=== PATIENT | female | born 1955 | race Caucasian/White ===

== ENCOUNTER → 2016-08-13 | Outpatient (CLI) | payer OTHER, BC ==
--- NOTE | 2016-08-13 09:00 | REPMRS ---
Patient History The patient states she had a clinical breast exam in 08/11 Patient is postmenopausal. No known family history of cancer. Taking unspecified hormones for 25 years. Digital Woman Screen Mammo: August 13, 2016 - Exam #: [id number] Bilateral CC and MLO view(s) were taken. Technologist: Krystle Modi, Technologist Prior study comparison: August 08, 2015, digital woman screen mammo performed at [facility]. July 19, 2014, digital woman screen mammo performed at [facility]. June 29, 2013, digital woman screen mammo performed at [facility]. FINDINGS: There are scattered fibroglandular densities. There has been no change in the appearance of the mammogram from the prior studies. There is a mild amount of scattered fibroglandular density which is fairly symmetric. There is no interval development of dominant mass, architectural distortion, or clustered microcalcification suggestive of malignancy. ASSESSMENT: BI-RADS/ACR category 1 mammogram. Negative. Recommendation Routine screening mammogram in 1 year (for women over age 40). This mammogram was interpreted with the aid of an FDA-approved computer-aided dectection system. Electronically Signed By: Pk Mancilla MD 08/13/16 [id number]
== END ==
LOC: M WHC 08:00
PROVIDERS: ATTEND Nurse Practitioner Family
DX: Z12.31 Encounter for screening mammogram for malignant neoplasm of breast (principal); Z78.0 Asymptomatic menopausal state

== ENCOUNTER → 2016-10-15 | Outpatient (REF) | payer OTHER ==
[~2016-10-15] MED LIST: ADVAIR; ALBU17IN; BYDU1INJ; DICL13PA; ESTR1CRE; JARD1TAB3; LOSA50TA20; METF-415 PO; ONDA8TAB8; PANT40TA2; PERC5TAB12 PO; SIMV20TA2; SPIR25TA2
== END ==
LOC: M LAB REF 13:20
PROVIDERS: ATTEND Family Medicine
DX: Z01.89 Encounter for other specified special examinations (principal)

== ENCOUNTER 2016-12-28 09:56 | Emergency (ER) | payer OTHER, BC ==
[~2016-12-28] VITALS: Ht 165.1 cm; Wt 68.2 kg
[2016-12-28] MEDS ORDERED: SIMV20TA2 (10:07)
[2016-12-28] MEDS ORDERED: ADVAIR (10:07)
[2016-12-28] MEDS ORDERED: METF-415 PO (10:07)
[2016-12-28] MEDS ORDERED: BYDU1INJ (10:07)
[2016-12-28] MEDS ORDERED: SPIR25TA2 (10:07)
[2016-12-28] MEDS ORDERED: ESTR1CRE (10:07)
[2016-12-28] MEDS ORDERED: LOSA50TA20 (10:07)
[2016-12-28] MEDS ORDERED: JARD1TAB3 (10:07)
[2016-12-28] MEDS ORDERED: ALBU17IN (10:07)
[2016-12-28] MEDS ORDERED: DICL13PA (10:07)
[2016-12-28] MEDS ORDERED: ONDA8TAB8 (10:07)
[2016-12-28] MEDS ORDERED: PANT40TA2 (10:07)
[2016-12-28] MEDS ORDERED: KETOROLAC 60 MG/2 ML VIAL (J1885) IM ONE (12:30)
[2016-12-28] MEDS ORDERED: PERC5TAB12 PO (12:31)
[2016-12-28 12:43] VITALS: BP 139/69
== END 2016-12-28 13:14 | disposition home or self-care (01) ==
LOC: M ED 09:56
DX: M25.562 Pain in left knee (principal); E11.9 Type 2 diabetes mellitus without complications; J45.909 Unspecified asthma, uncomplicated; I10 Essential (primary) hypertension; Z79.84 Long term (current) use of oral hypoglycemic drugs; Z79.899 Other long term (current) drug therapy; Z88.5 Allergy status to narcotic agent; Z88.8 Allergy status to other drugs, medicaments and biological substances; Z88.2 Allergy status to sulfonamides; Z88.1 Allergy status to other antibiotic agents
CPT/HCPCS: 96372; 99283; J1885

== ENCOUNTER → 2017-04-29 | Outpatient (REF) | payer OTHER, BC | LOC: M LAB REF 12:11 | DX: R30.0 Dysuria (principal) ==

== ENCOUNTER → 2017-08-17 | Outpatient (CLI) | payer OTHER, BC ==
[2017-08-17 16:52] LABS: BASO # 0.1 10^3/uL (0.0-0.2); BASO % 0.7 % (0.0-1.0); EOS # 0.1 10^3/uL (0.0-0.50); EOS % 1.3 % (0.0-3.0); HEMATOCRIT 47.1 % (36.0-47.0); HEMOGLOBIN 15.5 g/dl (12.0-15.5); IMMATURE GRANULOCYTE % 0.3 % (0-3.0); LYMPH # 3.1 10^3/uL (1.5-4.5); LYMPH % 31.2 % (24.0-44.0); MEAN CORPUSCULAR HEMOGLOBIN 29.6 pg (27.0-33.0); MEAN CORPUSCULAR HGB CONC 32.9 g/dl (32.0-36.5); MEAN CORPUSCULAR VOLUME 90.1 fl (80.0-96.0); MONO # 0.7 10^3/uL (0.0-0.8); MONO % 7.2 % (0.0-5.0); NEUTROPHILS # 5.9 10^3/uL (1.8-7.7); NEUTROPHILS % 59.3 % (36.0-66.0); PLATELET COUNT, AUTOMATED 371 10^3/uL (150-450); RED BLOOD COUNT 5.23 10^6/uL (4.00-5.40); RED CELL DISTRIBUTION WIDTH 13.3 % (11.5-14.5)
[2017-08-17 18:29] LABS: ALBUMIN 4.6 GM/DL (3.2-5.2); ALBUMIN/GLOBULIN RATIO 1.44 (1.00-1.93); ALKALINE PHOSPHATASE 82 U/L (45-117); ALT/SGPT 27 U/L (12-78); AMYLASE 139 U/L (25-115); ANION GAP 11 MEQ/L (8-16); AST/SGOT 12 U/L (7-37); BILIRUBIN,TOTAL 0.8 MG/DL (0.2-1.0); BLOOD UREA NITROGEN 21 MG/DL (7-18); CALCIUM LEVEL 9.8 MG/DL (8.8-10.2); CARBON DIOXIDE LEVEL 24 MEQ/L (21-32); CHLORIDE LEVEL 103 MEQ/L (98-107); CREATININE FOR GFR 0.77 MG/DL (0.55-1.30); GLOMERULAR FILTRATION RATE > 60.0 (>45); GLUCOSE, FASTING 136 MG/DL (70-100); LIPASE 124 U/L (73-393); POTASSIUM SERUM 4.5 MEQ/L (3.5-5.1); SODIUM LEVEL 138 MEQ/L (136-145); TOTAL PROTEIN 7.8 GM/DL (6.4-8.2)
== END ==
LOC: M WUC 12:08
DX: R11.2 Nausea with vomiting, unspecified (principal)

== ENCOUNTER → 2017-08-19 | Outpatient (CLI) | payer OTHER | LOC: M WHC 07:55 | DX: Z12.31 Encounter for screening mammogram for malignant neoplasm of breast (principal) ==

== ENCOUNTER → 2017-09-07 | Outpatient (CLI) | payer OTHER | LOC: M LRY 11:59 | DX: S69.92XA Unspecified injury of left wrist, hand and finger(s), initial encounter (principal); X58.XXXA Exposure to other specified factors, initial encounter; Y92.9 Unspecified place or not applicable | CPT/HCPCS: 73140 ==

== ENCOUNTER → 2018-07-20 | Outpatient (CLI) | payer OTHER ==
[~2018-07-20] MED LIST changes: -LOSA50TA20; +LOSA50TA88; -PANT40TA2; +PANT40TA3; +SPIR-10; -SPIR25TA2
--- NOTE | 2018-07-20 16:54 | REP ---
Left fingers four views History: Injury There is no acute fracture or dislocation. The joint spaces are normal in appearance. Calcified densities are present medial to the and posterior to the the distal interphalangeal joint of the second digit. This represents ligamentous or tendon calcification. Impression: There is no acute fracture or dislocation. Electronically Signed by Vlad Hudson MD 07/20/2018 04:46 P
== END ==
LOC: M LRY 16:09
PROVIDERS: ATTEND Physician Assistant
DX: S69.92XA Unspecified injury of left wrist, hand and finger(s), initial encounter (principal); X58.XXXA Exposure to other specified factors, initial encounter; Y92.89 Other specified places as the place of occurrence of the external cause

== ENCOUNTER → 2018-08-25 | Outpatient (CLI) | payer OTHER ==
--- NOTE | 2018-08-25 10:06 | REPMRS ---
Patient History The patient states she had a clinical breast exam in 07/2018. Patient is postmenopausal. No known family history of cancer. Taking unspecified hormones for 27 years. 3D TOMOSYNTHESIS WAS PERFORMED. Digital Woman Screen Mammo: August 25, 2018 - Exam #: [id number] Bilateral CC and MLO view(s) were taken. Technologist: Alexandra Samuels Technologist Prior study comparison: August 19, 2017, digital woman screen mammo performed at [facility]. August 13, 2016, digital woman screen mammo performed at [facility]. FINDINGS: The breast tissue is heterogeneously dense. This may lower the sensitivity of mammography. There has been no change in the appearance of the mammogram from the prior studies. There is a moderate amount of residual fibroglandular tissue which is fairly symmetric. There is no interval development of dominant mass, areas of architectural distortion, or clustered microcalcification typical of malignancy. Assessment: BI-RADS/ACR category 1 mammogram. Negative Mammogram. Recommendation Routine screening mammogram in 1 year (for women over age 40). This mammogram was interpreted with the aid of an FDA-approved computer-aided dectection system. Electronically Signed By: Jorge Alberto Esparza MD 08/25/18 [id number]
== END ==
LOC: M WHC 08:00
PROVIDERS: ATTEND Nurse Practitioner Family
DX: Z12.31 Encounter for screening mammogram for malignant neoplasm of breast (principal); Z78.0 Asymptomatic menopausal state; Z92.29 Personal history of other drug therapy

== ENCOUNTER → 2019-03-25 | Outpatient (REF) | payer OTHER ==
[~2019-03-25] MED LIST changes: -SIMV20TA2; +SIMV20TA22
== END ==
LOC: M LAB REF 13:37
PROVIDERS: ATTEND Physician Assistant
DX: R39.12 Poor urinary stream (principal)

== ENCOUNTER → 2019-06-04 | Outpatient (REF) | payer BC ==
[2019-06-04 16:29] LABS: CREATININE, URINE 62.9 MG/DL; MAU/CREAT RATIO 31.7 MCG/MG (0.0-30.0)
== END ==
LOC: M LAB REF 15:12
PROVIDERS: ATTEND Nurse Practitioner Family
DX: E11.9 Type 2 diabetes mellitus without complications (principal)

== ENCOUNTER → 2019-08-31 | Outpatient (CLI) | payer OTHER ==
--- NOTE | 2019-08-31 09:18 | REPMRS ---
Patient History The patient states she had a clinical breast exam in August 2019. No known family history of cancer. Taking unspecified hormones for 27 years. 3D TOMOSYNTHESIS WAS PERFORMED. [facility] for [facility] 5.7%. JIMMY Merchant. Digital Woman Screen Mammo: August 31, 2019 - Exam #: [id number] Bilateral CC and MLO view(s) were taken. Technologist: Talisha Tuttle, Technologist Prior study comparison: August 25, 2018, bilateral digital woman screen mammo performed at [facility]. August 19, 2017, digital woman screen mammo performed at [facility]. FINDINGS: The breast tissue is heterogeneously dense. This may lower the sensitivity of mammography. There has been no change in the appearance of the mammogram from the prior studies. There is a moderate amount of residual fibroglandular tissue which is fairly symmetric. There is no interval development of dominant mass, areas of architectural distortion, or clustered microcalcification typical of malignancy. Assessment: BI-RADS/ACR category 1 mammogram. Negative Mammogram. Recommendation Routine screening mammogram in 1 year (for women over age 40). This mammogram was interpreted with the aid of an FDA-approved computer-aided dectection system. Electronically Signed By: Jorge Alberto Esparza MD 08/31/19 0918
== END ==
LOC: M WHC 08:17
PROVIDERS: ATTEND Nurse Practitioner Family
DX: Z12.31 Encounter for screening mammogram for malignant neoplasm of breast (principal)

== ENCOUNTER → 2020-09-24 | Outpatient (CLI) | payer OTHER ==
[~2020-09-24] MED LIST changes: +PANT40TA29; -PANT40TA3
== END ==
LOC: M PLALAB 12:55
PROVIDERS: ATTEND Advanced Practice Midwife
DX: N64.52 Nipple discharge (principal)

== ENCOUNTER → 2020-09-24 | Outpatient (CLI) | payer OTHER ==
--- NOTE | 2020-09-24 13:04 | REPMRS ---
Patient History The patient states she had a clinical breast exam in August 2020. No known family history of cancer. Taking unspecified hormones for 27 years. No breast complaints today Patient signed the MRS sheet Priors on PACS Patient Identification Verified Digital Woman Screen Mammo: September 24, 2020 - Exam #: [id number] Bilateral CC and MLO view(s) were taken. Technologist: Talisha Tuttle, Technologist Prior study comparison: August 31, 2019, bilateral digital woman screen mammo performed at [facility]. August 25, 2018, bilateral digital woman screen mammo performed at [facility]. August 19, 2017, digital woman screen mammo performed at [facility]. FINDINGS: There are scattered fibroglandular densities. The Volpara volumetric breast density category is:B. There has been no change in the appearance of the mammogram from the prior studies. There is a mild amount of scattered fibroglandular density which is fairly symmetric. There is no interval development of dominant mass, architectural distortion, or grouped microcalcification suggestive of malignancy. 3-D tomosynthesis shows no additional findings. Assessment: BI-RADS/ACR category 1 mammogram. Negative Mammogram. Recommendation Routine screening mammogram of both breasts in 1 year (for women over age 40). This patient's [facility] Lifetime Breast Cancer Risk is estimated at 5.5 %. This mammogram was interpreted with the aid of an FDA-approved computer-aided dectection system. Electronically Signed By: Pk Mancilla MD 09/24/20 [id number]
== END ==
LOC: M WHC 11:17
PROVIDERS: ATTEND Advanced Practice Midwife
DX: Z12.31 Encounter for screening mammogram for malignant neoplasm of breast (principal)

== ENCOUNTER → 2021-01-05 | Outpatient (REF) | payer OTHER ==
[2021-01-05 17:45] LABS: ATYPICAL LYMPH 1 % (0-5); BASOPHILS 2 % (0-1); LYMPHOCYTES 33 % (16-44); MONOCYTES 6 % (0-5); NEUTROPHILS 57 % (28-66)
[2021-01-05 17:46] LABS: PLATELET ESTIMATE NORMAL (NORMAL)
== END ==
LOC: M LAB REF 16:17
PROVIDERS: ATTEND Family Medicine
DX: R59.0 Localized enlarged lymph nodes (principal)

== ENCOUNTER → 2021-03-23 | Outpatient (CLI) | payer OTHER ==
[~2021-03-23] MED LIST changes: +ACID1TAB PO; +ADV500INH INH; +ALBU8.5H INH; +ALLE10TA32 PO; +ASPI81TA26 PO; +DULA3PEN SQ; +ESTR1CRE VA; +FLUT1BLS6 INH; +LOSA50TA28 PO; -LOSA50TA88; +METF-838 PO; +NITR0.4S14 SL; +PANT20TA6 PO; -SIMV20TA22; +SIMV20TA22 PO; -SPIR-10; +SPIR-10 PO; +STEG15TA PO; +VITMTA PO
== END ==
LOC: M LABSMTC 11:40
PROVIDERS: ATTEND Anesthesiology
DX: Z01.812 Encounter for preprocedural laboratory examination (principal); Z11.52 Encounter for screening for COVID-19

== ENCOUNTER 2021-03-26 09:43 | Day surgery (SDC) | payer OTHER ==
[~2021-03-26] VITALS: Ht 165.1 cm; Wt 63.0 kg
[~2021-03-26 09:43] MED LIST changes: +LIDOCAINE 2% 100MG/5ML SDV (FOR ANES.) As Ordered ONE; -LOSA50TA28 PO; +LOSA50TA88 PO; +propofoL 200 MG/20 ML VIAL As Ordered ONE
[2021-03-26] MEDS: NS 1,000 ML IV SCH ×2 (11:28→11:29)
[2021-03-26] MEDS ORDERED: propofoL 200 MG/20 ML VIAL As Ordered ONE (12:48)
--- NOTE | 2021-03-26 13:06 | ROOR ---
Patient Name: Christi Louie Procedure Date: 03/26/2021 12:09 PM Date of : 1955 Age: 65 Room: [facility] Gender: Female Note Status: Finalized Procedure: Colonoscopy Indications: Clinically significant diarrhea of unexplained origin Providers: Kwan Padgett Jr, MD Referring MD: Vinay Lynch MD Requesting Provider: Medicines: Propofol per Anesthesia Complications: No immediate complications. Procedure: Pre-Anesthesia Assessment: - Prior to the procedure, a History and Physical was performed, and patient medications and allergies were reviewed. The patient is competent. The risks and benefits of the procedure and the sedation options and risks were discussed with the patient. All questions were answered and informed consent was obtained. Patient identification and proposed procedure were verified by the physician and the nurse in the pre-procedure area and in the procedure room. Mental Status Examination: alert and oriented. Airway Examination: normal oropharyngeal airway and neck mobility. Respiratory Examination: clear to auscultation. CV Examination: normal. ASA Grade Assessment: II - A patient with mild systemic disease. After reviewing the risks and benefits, the patient was deemed in satisfactory condition to undergo the procedure. The anesthesia plan was to use moderate sedation / analgesia (conscious sedation). Immediately prior to administration of medications, the patient was re-assessed for adequacy to receive sedatives. The heart rate, respiratory rate, oxygen saturations, blood pressure, adequacy of pulmonary ventilation, and response to care were monitored throughout the procedure. The physical status of the patient was re-assessed after the procedure. The Colonoscope was introduced through the anus and advanced to the cecum, identified by appendiceal orifice and ileocecal valve. The colonoscopy was performed without difficulty. The patient tolerated the procedure well. The quality of the bowel preparation was adequate. Findings: The rectum, recto-sigmoid colon, descending colon, transverse colon, ascending colon, cecum, appendiceal orifice and ileocecal valve appeared normal. Multiple small and large-mouthed diverticula were found in the sigmoid colon. A small polyp was found in the sigmoid colon. The polyp was removed with a hot snare. Resection and retrieval were complete. Impression: - The rectum, recto-sigmoid colon, descending colon, transverse colon, ascending colon, cecum, appendiceal orifice and ileocecal valve are normal. - Diverticulosis in the sigmoid colon. - One small polyp in the sigmoid colon, removed with a hot snare. Resected and retrieved. Recommendation: - Discharge patient to home (ambulatory). - Repeat colonoscopy in 5-10 years for surveillance based on pathology results. Procedure Code(s): --- Professional --- 99357, Colonoscopy, flexible; with removal of tumor(s), polyp(s), or other lesion(s) by snare technique Diagnosis Code(s): --- Professional --- K63.5, Polyp of colon R19.7, Diarrhea, unspecified K57.30, Diverticulosis of large intestine without perforation or abscess without bleeding CPT copyright 2019 [employer]. All rights reserved. The codes documented in this report are preliminary and upon care tech review may be revised to meet current compliance requirements. Kwan Padgett MD Kwan Padgett Jr, MD 03/26/2021 1:05:41 PM Electronically signed by Kwan Padgett Jr, MD Number of Addenda: 0 Note Initiated On: 03/26/2021 12:09 PM Estimated Blood Loss: Estimated blood loss: none.
[2021-03-26 13:10] VITALS: BP 137/63
== END 2021-03-26 13:27 | disposition home or self-care (01) ==
LOC: M OPP 09:43
PROVIDERS: ATTEND Surgery
DX: K63.5 Polyp of colon (principal); K57.30 Diverticulosis of large intestine without perforation or abscess without bleeding; R19.7 Diarrhea, unspecified; Z79.82 Long term (current) use of aspirin; Z79.84 Long term (current) use of oral hypoglycemic drugs; Z79.899 Other long term (current) drug therapy; Z88.1 Allergy status to other antibiotic agents; Z88.2 Allergy status to sulfonamides; Z88.5 Allergy status to narcotic agent; Z88.8 Allergy status to other drugs, medicaments and biological substances

== ENCOUNTER → 2021-06-25 | Outpatient (CLI) | payer OTHER ==
[~2021-06-25] MED LIST changes: -LIDOCAINE 2% 100MG/5ML SDV (FOR ANES.) As Ordered ONE; +LOSA50TA28 PO; -LOSA50TA88 PO; -propofoL 200 MG/20 ML VIAL As Ordered ONE
[2021-06-25 12:06] LABS: BASO # 0.1 10^3/uL (0.0-0.2); BASO % 0.8 % (0.0-1.0); EOS # 0.3 10^3/uL (0.0-0.5); HEMATOCRIT 42.1 % (36.0-47.0); HEMOGLOBIN 14.1 g/dl (12.0-15.5); LYMPH # 2.6 10^3/uL (1.5-5.0); LYMPH % 31.1 % (24.0-44.0); MEAN CORPUSCULAR HEMOGLOBIN 30.1 pg (27.0-33.0); MEAN CORPUSCULAR HGB CONC 33.5 g/dl (32.0-36.5); MONO # 0.6 10^3/uL (0.0-0.8); MONO % 7.6 % (2.0-8.0); NEUTROPHILS # 4.7 10^3/uL (1.5-8.5); NEUTROPHILS % 57.1 % (36.0-66.0); PLATELET COUNT, AUTOMATED 377 10^3/uL (150-450); RED BLOOD COUNT 4.68 10^6/uL (4.00-5.40); WHITE BLOOD COUNT 8.2 10^3/uL (4.0-10.0)
[2021-06-25 12:39] LABS: BLOOD UREA NITROGEN 18 MG/DL (7-18); CALCIUM LEVEL 9.4 MG/DL (8.8-10.2); CARBON DIOXIDE LEVEL 27 MEQ/L (21-32); CHLORIDE LEVEL 108 MEQ/L (98-107); CREATININE FOR GFR 0.73 MG/DL (0.55-1.30); GLOMERULAR FILTRATION RATE > 60.0 (>45); GLUCOSE, FASTING 119 MG/DL (70-100); POTASSIUM SERUM 4.1 MEQ/L (3.5-5.1); SODIUM LEVEL 140 MEQ/L (136-145)
== END ==
LOC: M LAB 11:12
PROVIDERS: ATTEND Internal Medicine
DX: R07.9 Chest pain, unspecified (principal); E11.69 Type 2 diabetes mellitus with other specified complication; R94.39 Abnormal result of other cardiovascular function study

== ENCOUNTER → 2021-09-24 | Outpatient (CLI) | payer MEDICAID, MEDICARE, OTHER | LOC: M WHC 09:05 | PROVIDERS: ATTEND Advanced Practice Midwife | DX: Z12.31 Encounter for screening mammogram for malignant neoplasm of breast (principal) ==

== ENCOUNTER → 2021-09-25 | Outpatient (CLI) | payer MEDICARE | LOC: M WHC 07:30 | PROVIDERS: ATTEND Advanced Practice Midwife | DX: M85.89 Other specified disorders of bone density and structure, multiple sites (principal) ==

== ENCOUNTER → 2021-11-05 | Outpatient (CLI) | payer MEDICARE ==
[2021-11-05 18:28] LABS: THYROID STIMULATING HORMONE 1.73 uIU/ML (0.358-3.740)
[2021-11-05 18:54] LABS: PROLACTIN 5.5 NG/ML
== END ==
LOC: M PLALAB 09:06
PROVIDERS: ATTEND Nurse Practitioner Women's Health
DX: N64.52 Nipple discharge (principal); Z79.899 Other long term (current) drug therapy
CPT/HCPCS: 36415; 84146; 84443; G0463

== ENCOUNTER → 2021-11-17 | Outpatient (CLI) | payer MEDICARE | LOC: M WHC 07:34 | PROVIDERS: ATTEND Nurse Practitioner Women's Health | DX: N64.52 Nipple discharge (principal) ==

== ENCOUNTER → 2021-12-29 | Outpatient (REF) | payer OTHER, MEDICARE | LOC: M LAB REF 16:31 | PROVIDERS: ATTEND Family Medicine | DX: R30.0 Dysuria (principal) ==

== ENCOUNTER → 2022-10-15 | Outpatient (CLI) | payer MEDICARE, OTHER | LOC: M WHC 09:17 | PROVIDERS: ATTEND Advanced Practice Midwife | DX: Z12.31 Encounter for screening mammogram for malignant neoplasm of breast (principal); N89.8 Other specified noninflammatory disorders of vagina ==

== ENCOUNTER → 2022-11-26 | Outpatient (REF) | payer MEDICARE ==
[2022-11-26 14:35] LABS: CREATININE, URINE 75.2 MG/DL
[2022-11-26 14:37] LABS: MAU/CREAT RATIO 6.6 MCG/MG (0.0-30.0)
== END ==
LOC: M LAB REF 12:47
PROVIDERS: ATTEND Nurse Practitioner Family
DX: E11.9 Type 2 diabetes mellitus without complications (principal)

== ENCOUNTER → 2023-04-13 | Outpatient (REF) | payer MEDICARE, OTHER | LOC: M LAB REF 12:31 | PROVIDERS: ATTEND Family Medicine | DX: I11.0 Hypertensive heart disease with heart failure (principal) ==

== ENCOUNTER → 2023-06-22 | Outpatient (CLI) | payer MEDICARE, OTHER | LOC: M WUC 10:46 | PROVIDERS: ATTEND Nurse Practitioner Family | DX: K59.00 Constipation, unspecified (principal) ==

== ENCOUNTER → 2023-08-18 | Outpatient (CLI) | payer MEDICARE, OTHER ==
[~2023-08-18] MED LIST changes: +METHACHOLINE KIT (6 VIAL.NEB PREMIX) INH ONE
== END ==
LOC: M CARPUL 09:01
PROVIDERS: ATTEND Physician Assistant
DX: R06.00 Dyspnea, unspecified (principal)
CPT/HCPCS: 94070; 95070; J7674

== ENCOUNTER → 2023-10-27 | Outpatient (CLI) | payer MEDICARE ==
[~2023-10-27] MED LIST changes: -METHACHOLINE KIT (6 VIAL.NEB PREMIX) INH ONE; +ONDA-284; -ONDA8TAB8
== END ==
LOC: M PLAIMG 09:25
PROVIDERS: ATTEND Family Medicine
DX: I50.32 Chronic diastolic (congestive) heart failure (principal)

== ENCOUNTER → 2023-11-30 | Outpatient (REF) | payer MEDICARE ==
[2023-11-30 10:51] LABS: APPEARANCE, URINE CLEAR (CLEAR); BACTERIA, URINE AUTO NEGATIVE (NEGATIVE); BILIRUBIN, URINE AUTO NEGATIVE (NEGATIVE); BLOOD, URINE BLOOD NEGATIVE (NEGATIVE); COLOR, URINE YELLOW (YELLOW); GLUCOSE, URINE (UA) AUTO 3+ mg/dL (NEGATIVE); KETONE, URINE AUTO NEGATIVE (NEGATIVE); LEUKOCYTE ESTERASE, URINE AUTO NEGATIVE (NEGATIVE); NITRITE, URINE AUTO NEGATIVE (NEGATIVE); PROTEIN, URINE AUTO NEGATIVE (NEGATIVE); RBC, URINE AUTO 0 /HPF (0-3); SPECIFIC GRAVITY URINE AUTO 1.026 (1.002-1.035); SQUAMOUS EPITHELIAL CELL UR AU 1 /HPF (0-6); UROBILINOGEN, URINE AUTO 0.2 mg/dL (0.0-2.0); WBC, URINE AUTO 0 /HPF (0-3)
== END ==
LOC: M PLALAB 09:10
PROVIDERS: ATTEND Advanced Practice Midwife
DX: R10.2 Pelvic and perineal pain (principal)

== ENCOUNTER → 2023-11-30 | Outpatient (CLI) | payer MEDICARE | LOC: M WHC 08:35 | PROVIDERS: ATTEND Advanced Practice Midwife | DX: Z12.31 Encounter for screening mammogram for malignant neoplasm of breast (principal); R92.333 Mammographic heterogeneous density, bilateral breasts; Z13.820 Encounter for screening for osteoporosis; M85.88 Other specified disorders of bone density and structure, other site ==

== ENCOUNTER → 2024-11-30 | Outpatient (CLI) | payer MEDICARE ==
[~2024-11-30] MED LIST changes: -ADV500INH INH; +ADVA1AER10 INH
== END ==
LOC: M WHC 13:35
PROVIDERS: ATTEND Advanced Practice Midwife
DX: Z12.31 Encounter for screening mammogram for malignant neoplasm of breast (principal); R92.323 Mammographic fibroglandular density, bilateral breasts